=== PATIENT | male | born 2000 | race Hispanic/Latino ===

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

== ENCOUNTER 2023-01-08 13:05 | Emergency (ER) | payer MEDICAID, OTHER ==
[~2023-01-08] VITALS: Ht 172.7 cm; Wt 51.3 kg
[2023-01-08 13:12] VITALS: BP 115/77; PULSE 71; RESP 20
[2023-01-08 13:59] LABS: APPEARANCE,URINE CLOUDY (CLEAR); BILIRUBIN,URINE NEGATIVE (NEGATIVE); COLOR,URINE YELLOW (YELLOW); GLUCOSE, URINE (UA) NEGATIVE (NEGATIVE); KETONES,URINE NEGATIVE (NEGATIVE); LEUKOCYTE ESTERASE ,URINE 250 Leu/uL (NEGATIVE); NITRATE,URINE NEGATIVE (NEGATIVE); OCCULT BLOOD,URINE NEGATIVE (NEGATIVE); PH,URINE 5.5 (5.0-8.0); PROTEIN,URINE 30 mg/dL (NEGATIVE); UROBILINOGEN,URINE 0.2 mg/dL (0.2-1.0)
[2023-01-08] MEDS ORDERED: CEFTRIAXONE 1G VIAL IVPB ONE (14:00)
[2023-01-08] MEDS ORDERED: AZITHROMYCIN 250 MG TABLET PO ONE (14:00)
[2023-01-08 14:13] LABS: ADD UA MICROSCOPIC YES
[2023-01-08 14:17] LABS: MUCUS,URINE RARE LPF (None Seen); SQUAMOUS EPITHELIAL CELL,UR RARE /HPF (0-2); WBC,URINE TNTC /HPF (0-1)
[2023-01-08] MEDS ORDERED: DOXY100C5 PO (14:47)
== END 2023-01-08 15:00 | disposition home or self-care (01) ==
LOC: EDH 13:05
DX: N30.00 Acute cystitis without hematuria (principal); Z20.2 Contact with and (suspected) exposure to infections with a predominantly sexual mode of transmission; Z98.890 Other specified postprocedural states
CPT/HCPCS: 99284; 96365; 87088; 87797; 87486; 81001; J0696

== ENCOUNTER 2023-12-05 15:06 | Emergency (ER) | payer SELFPAY ==
[~2023-12-05] VITALS: Ht 175.3 cm; Wt 54.0 kg
[~2023-12-05 15:06] MED LIST: DOXY100C5 PO
[2023-12-05 15:53] VITALS: BP 126/75; PULSE 88; RESP 20; TEMP 97; O2SAT 98
[2023-12-05 16:33] LABS: APPEARANCE,URINE CLOUDY (CLEAR); BILIRUBIN,URINE NEGATIVE (NEGATIVE); COLOR,URINE YELLOW (YELLOW); GLUCOSE, URINE (UA) NEGATIVE (NEGATIVE); KETONES,URINE NEGATIVE (NEGATIVE); LEUKOCYTE ESTERASE ,URINE 500 Leu/uL (NEGATIVE); NITRATE,URINE NEGATIVE (NEGATIVE); OCCULT BLOOD,URINE SMALL (NEGATIVE); PH,URINE 6.5 (5.0-8.0); PROTEIN,URINE 10 mg/dL (NEGATIVE)
[2023-12-05 16:45] LABS: MUCUS,URINE RARE LPF (None Seen); SQUAMOUS EPITHELIAL CELL,UR RARE /HPF (0-2); UNCLASSIFIED CRYSTAL 8 /HPF (None Seen); WBC,URINE TNTC /HPF (0-1); YEAST,URINE BUDDING FEW /HPF (None Seen)
[2023-12-05] MEDS ORDERED: CEPH500B PO (16:53)
== END 2023-12-05 17:03 | disposition home or self-care (01) ==
LOC: EDH 15:06
DX: N30.00 Acute cystitis without hematuria (principal); Z20.2 Contact with and (suspected) exposure to infections with a predominantly sexual mode of transmission
CPT/HCPCS: 81001; 87086; 87491; 87591

== ENCOUNTER 2024-02-11 02:19 | Emergency (ER) | payer SELFPAY ==
[~2024-02-11] VITALS: Ht 160 cm; Wt 52.2 kg
[~2024-02-11 02:19] MED LIST changes: +CEPH500B PO
--- NOTE | 2024-02-11 02:48 | NUR ---
PATIENT CAME INTO ER DUE TO A FALL AND LACERATION TO THE BACK OF THE RIGHT HEAD. MOTHER AT SIDE. PATIENT BECAME VERY VIOLENT AND BELLIGERENT WITH MOTHER, DOCTOR AND NURSES, STATING THAT HE DID NOT NEED ANYONES HELP. PATIENT REFUSED HELP MULTIPLE TIMES DESPITE THE RE DIRECTION AND EDUCATION PROVIDED TO MOTHER AND PATIENT. PATIENT APPEARED TO BE INTOXICATED, WITH AN UNSTEADY GATE.
--- NOTE | 2024-02-11 02:51 | NUR ---
AT THIS TIME PATIENT HAS ELOPED WITH MOTHER, ED DOCTOR MADE AWARE
--- NOTE | 2024-02-11 02:52 | NUR ---
PATIENT DID NOT LET ANYONE ASSESS HIM OR CHECK HIS VITALS.
== END 2024-02-11 02:54 | disposition left against medical advice (07) ==
LOC: EDH 02:19
DX: S01.01XA Laceration without foreign body of scalp, initial encounter (principal); Z53.21 Procedure and treatment not carried out due to patient leaving prior to being seen by health care provider; W18.39XA Other fall on same level, initial encounter; Y93.89 Activity, other specified; Y92.89 Other specified places as the place of occurrence of the external cause; Y99.8 Other external cause status

== ENCOUNTER 2024-03-17 04:25 | Emergency (ER) | payer SELFPAY ==
[~2024-03-17] VITALS: Ht 172.7 cm; Wt 54.4 kg
--- NOTE | 2024-03-17 04:44 | NUR ---
WHEN ASSESSING PATIENT AND PREPARING TO DRAW BLOOD FOR MANDATORY BLOOD DRAW, PATIENT STATED HE IS FEELING SUICIDAL, VOICES A PLAN TO SHOOT HIMSELF WITH OFFICER MAYDA'S GUN. PATIENT ALSO REPORTS HEARING VOICES TELLING HIM TO HURT HIMSELF, DENIES HOMICIDAL IDEATION OR VISUAL HALLUCINATIONS. PATIENT STATES SI AND AUDITORY HALLUCINATIONS STARTED A COUPLE HOURS AGO AFTER BEING PLACED IN CUSTODY WITH DPS.
--- NOTE | 2024-03-17 04:57 | NUR ---
RT AC AREA CLEANED WITH SOAP AND WATER, PAT DRY. BLOOD DRAWN FOR DPS VIA WARRANT SIGNATURE. PT TEARFUL, VERBALLY ABUSIVE TO STAFF AND DPS NATHAN FREDERICK AT BEDSIDE. CALLING DPS NATHAN A " BITCH", " NIGGA" " I DONT GIVE MY CONSENT TO DO THIS" IT WAS EXPLAINED PRIOR, DURING AND AFTER BLOOD DRAW THAT A WARRANT WAS ISSUED AND NO VERBAL CONSENT WAS NEEDED. PT CONTINUED TO CALL DPS NATHAN FREDERICK NAMES, NATHAN WAS NOT PHYSICALLY INVOLVED IN DRAW, ( NURSING STAFF WAS ) NATHAN WAS NOT PHYSICALLY TOUCHING PT OR TALKING WITH PT. PT CONTINUED TO BE VERBALLY AGGRESSIVE ' I BET SHE DOESNT HAVE ANY TANZANIAN BLOOD IN HER'. PT STATED TO NATHAN MAYDA STANDING TO HIS LEFT " JUST FUCKING SHOOT ME " GESTURING TO HIS GUN. " I JUST WANT TO " PT MADE THIS PLEA, DEMAND MULTIPLE TIMES IN DIFFERENT PHRASING. PT CRYING STATING " THEY ALREADY DEPORTED MY MOM TO [place]".
--- NOTE | 2024-03-17 04:58 | NUR ---
INCREASED TO LEVEL 2 DUE TO SI
--- NOTE | 2024-03-17 05:22 | ERN ---
ED Note History of Present Illness Stated Complaint: BLOOD DRAW Chief Complaint: Mandatory Blood Draw Time Seen by MD: 05:21 Dictation: This is a 23-year-old male brought by to DPS agents with a warrant for a blood draw. As he was bedded and blood draw was being drawn, patient is started threatening that he wanted to shoot himself and he was suicidal. Given this a medical clearance is being done. Patient is belligerent, intoxicated and smells of alcohol breath. 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 Surgical History: None Family History: Negative Social History: ETOH RN Note Reviewed/Agreed w/PFSH: Yes Review of System Dictation Constitutional: Negative for fever,chills, and weight loss Eyes: Negative for injury, pain,redness, and discharge ENT: Negative for injury,pain or swelling Cardiovascular: Negative for chest pain, palpitations, and edema Respiratory: Negative for shortness of breath, cough, and wheezing, Abdomen/GI: Negative for abdominal pain, nausea, vomiting, diarrhea, and constipation Back: Negative for injury and pain : Negative for injury, bleeding and discharge MS/Extremity: Negative for injury and deformity Skin: Negative for rash, and discoloration Neuro: Negative for headache, weakness, numbness, tingling, and seizure Psych: Positive for suicide ideation, denied homicidal ideation, and hallucinations Initial Vital Sign VS Vital Signs Date Time Temp Pulse Resp B/P (MAP) Pulse Ox O2 Delivery O2 Flow Rate FiO2 03/17/24 04:26 97.9 74 20 110/74 100 Room Air 03/17/24 06:07 0 21 Physical Exam Dictation General: awake, alert, NAD very thin unkempt Head/Face: Normocephalic, atraumatic Eyes: PERRL, EOMI, vision at baseline ENT: oral cavity clear, TMs clear, no signs of infection Neck: Trachea midline, supple, no nuchal rigidity Cardiovascular: RRR, normal S1/S2, No MRGs, no JVD Respiratory: CTAB, no respiratory distress, No rales or wheezes Abdomen: Soft, non-tender, non-distended, normal bowel sounds, no guarding or rebound. Skin: Warm, dry, normal turgor, no rash MS/Extremity: Pulses equal, no cyanosis, neurovascular intact, FROM Neuro: COAx4, GCS 15, strength 5/5, CN 2-12 intact, normal cerebellar exam, normal gait, Psych: Normal behavior, mood, and affect normal Extremities-trace edema without any palpable cords, Homans sign is negative Results (Laboratory/Radiology) Laboratory/Radiology Laboratory Tests Test 03/17/24 05:00 White Blood Count 9.9 K/uL (4.8-10.8) Red Blood Count 5.37 MIL/uL (4.50-6.20) Hemoglobin 16.5 g/dL (14.0-18.0) Hematocrit 48.0 % (42-54) Mean Corpuscular Volume 89.4 fL (80-100) Mean Corpuscular Hemoglobin 30.7 pg (27.0-33.0) Mean Corpuscular Hemoglobin Concent 34.4 g/dL (32.0-36.0) Red Cell Distribution Width 14.6 % (11.0-15.5) Platelet Count 287 K/uL (130-400) Mean Platelet Volume 10.5 fL (7.5-10.5) Immature Granulocyte % (Auto) 1.6 % (0-1) H Neutrophils (%) (Auto) 65.5 % (40.0-77.0) Lymphocytes (%) (Auto) 25.5 % (21.0-51.0) Monocytes (%) (Auto) 5.8 % (3.0-13.0) Eosinophils (%) (Auto) 1.0 % (0.0-8.0) Basophils (%) (Auto) 0.6 % (0.0-5.0) Neutrophils # (Auto) 6.5 K/uL (1.8-7.7) Lymphocytes # (Auto) 2.5 K/uL (1.0-4.8) Monocytes # (Auto) 0.6 K/uL (0.1-1.0) Eosinophils # (Auto) 0.10 K/uL (0.00-0.70) Basophils # (Auto) 0.06 K/uL (0.00-0.20) Absolute Immature Granulocyte (auto 0.16 K/uL (0-1) Nucleated Red Blood Cells 0.0 % (0.0-0.19) Sodium Level 140 mmol/L (136-145) Potassium Level 3.5 mmol/L (3.5-5.1) Chloride Level 104 mmol/L (101-111) Carbon Dioxide Level 25 mmol/L (21-32) Blood Urea Nitrogen 9 mg/dL (7-18) Creatinine 0.9 mg/dL (0.5-1.3) Glomerular Filtration Rate Calc 125 mL/min (>90) Random Glucose 97 mg/dL (70-105) Total Calcium 8.4 mg/dL (8.5-10.1) L Salicylates Level < 2.8 mg/dL (2.8-20.0) L Acetaminophen Level < 1 mcg/mL (10-29) L Serum Alcohol 232 mg/dL (0-10) H Labs Reviewed?: Yes ED Course ED Course Orders Procedure Category Date Status Time Acetaminophen LAB 03/17/24 Complete 05:11 Alcohol, Blood LAB 03/17/24 Complete 05:11 Salicylate LAB 03/17/24 Complete 05:11 Cbc With Differential LAB 03/17/24 Complete 05:11 Basic Metabolic Panel LAB 03/17/24 Complete 05:11 Drug Screen Urine LAB 03/17/24 Logged 05:11 Urinalysis Profile LAB 03/17/24 Logged 05:11 Vital Signs Date Time Temp Pulse Resp B/P (MAP) Pulse Ox O2 Delivery O2 Flow Rate FiO2 03/17/24 07:16 97.9 80 18 116/73 100 Room Air* 0 21 03/17/24 06:07 87 18 101/62 98 Room Air* 0 21 03/17/24 04:26 97.9 74 20 110/74 100 Room Air We will perform diagnostic labs, Once the results are available, will review and personally interpreted the labs to rule out any acute life-threatening emergency the trach require immediate intervention and treatment. I will then re-evaluate the patient after treatment and diagnostic exams have return to determine whether the patient requires any further testing, can safely be discharged to law enforcement or need further admission to hospital for additional treatment and evaluation. Labs reviewed CBC within normal limits. BNP 7 showed a potassium of 3.5 BUN and creatinine are 9 and 0.9. Tox screen showed an alcohol level of 232. Urine drug screen is still pending Medical Decision Making MDM MDM: Differential diagnosis: Alcohol intoxication, recreational drug intoxication, psychosis Rationale: Tests considered and ordered secondary to shared decision making include: Previous outside records reviewed: Old ER visits. Risk of complication and/or morbidity or mortality of patient management: None Medications-Per medication reconciliation Need for hospitalization: Patient does not meet criteria for hospitalization. Need for emergency major/minor surgery: No There are no social concerns with this patient. Prescription drug management Prescriptions will include symptomatic care Patient's prior external medical records from other ER visits were reviewed by me as indicated. Prior testing and results from previous visits were reviewed. Prior tests were taken into account with medical decision making and resource utilization, independent historian/historians were used to obtain complete medical history. I independently interpreted the test that were performed, results were reviewed by me and considered findings on radiology if ordered. Medical management and examination interpretation discussions were had by me with other qualified healthcare professionals as indicated for the patient's care. PATIENT REFUSED TO GIVE URINE FOR DRUG SCREEN. PATIENT WILL BE CLEARED WHILE INCARCERATED. VITALS HAS BEEN STABLE HERE. Problem List Problem List: (1) Alcohol intoxication DX & DISP Disposition: Discharge Departure Impression: Primary Impression: Alcohol intoxication Condition: Stable Additional Instructions: Patient and the caregiver have been informed of all the diagnostic tests and the imaging conducted during the today's visit to the emergency room and has verbalized understanding of the results I have personally reviewed and interpreted all diagnostic exams performed here in the ER today as well as the vital signs documented by the nursing staff. The patient is now being discharged to law enforcement custody and should follow up with the primary care physician or the specialist as directed by the ER staff. Referrals: SELF,REFERRAL (PCP) MANDIE MARTINEZ MD Time of Disposition: 08:17 MARIBEL LEWIS MD Mar 17, 2024 05:22 KIRAN HAZEL MD Mar 17, 2024 08:17
[2024-03-17 05:27] LABS: BASOPHILS # (AUTO) 0.06 K/uL (0.00-0.20); BASOPHILS % (AUTO) 0.6 % (0.0-5.0); IMMATURE GRANULOCYTE ABSOLUTE 0.16 K/uL (0-1); LYMPHOCYTES # (AUTO) 2.5 K/uL (1.0-4.8); LYMPHOCYTES % (AUTO) 25.5 % (21.0-51.0); MEAN CORPUSCULAR HEMOGLOBIN 30.7 pg (27.0-33.0); MEAN CORPUSCULAR HGB CONC 34.4 g/dL (32.0-36.0); MEAN CORPUSCULAR VOLUME 89.4 fL (80-100); MONOCYTES # (AUTO) 0.6 K/uL (0.1-1.0); MONOCYTES % (AUTO) 5.8 % (3.0-13.0); NEUTROPHILS # (AUTO) 6.5 K/uL (1.8-7.7); NEUTROPHILS % (AUTO) 65.5 % (40.0-77.0); PLATELET COUNT (AUTO) 287 K/uL (130-400); RED BLOOD CELL COUNT(AUTO) 5.37 MIL/uL (4.50-6.20); RED CELL DISTRIBUTION WIDTH 14.6 % (11.0-15.5); WHITE BLOOD COUNT (AUTO) 9.9 K/uL (4.8-10.8)
[2024-03-17 05:35] LABS: CARBON DIOXIDE 25 mmol/L (21-32); CHLORIDE 104 mmol/L (101-111); CREATININE 0.9 mg/dL (0.5-1.3); GLOMERULAR FILTR. RATE CALC 125 mL/min (>90); GLUCOSE,RANDOM 97 mg/dL (70-105); POTASSIUM 3.5 mmol/L (3.5-5.1); SODIUM SERUM 140 mmol/L (136-145); UREA NITROGEN, BLOOD 9 mg/dL (7-18)
[2024-03-17 05:38] LABS: ALCOHOL, BLOOD 232 mg/dL (0-10)
[2024-03-17 05:39] LABS: ACETAMINOPHEN < 1 mcg/mL (10-29); SALICYLATE < 2.8 mg/dL (2.8-20.0)
--- NOTE | 2024-03-17 06:01 | NUR ---
PATIENT REFUSING URINE SAMPLE, GIVEN URINAL AND URINE CONTAINER BUT STATES HE WILL NOT GIVE US A SAMPLE. DPS AT BEDSIDE.
--- NOTE | 2024-03-17 06:26 | NUR ---
PATIENT SLEEPING, NO DISRESS NOTED, DPS OFFICERS X2 AT BEDSIDE.
[2024-03-17 07:16] VITALS: BP 116/73; PULSE 80; RESP 18; TEMP 97.9; O2SAT 100
--- NOTE | 2024-03-17 07:30 | NUR ---
NATHAN MCKAY AT THE BEDSIDE REQUESTING PT TO MEDICALLY CLEARED AND PT CAN GET PSYCH SCREEN IN PRISON. DR HAZEL ER PROVIDER MADE AWARE.
--- NOTE | 2024-03-17 08:32 | NUR ---
PT DISCHARGED TO [facility] #[id number]. PT ALERT AND ORIENTED, NAD, AMBULATING WITHOUT ASSISTANCE. NO IV IN PLACE.
== END 2024-03-17 08:35 ==
LOC: EDH 04:25 → EEVIPCON 04:25 → EDH 08:35
DX: F10.129 Alcohol abuse with intoxication, unspecified (principal); Z79.899 Other long term (current) drug therapy
CPT/HCPCS: 99283; 80048; 85025; 36415; G0481

== ENCOUNTER 2024-08-11 03:44 | Emergency (ER) | payer SELFPAY ==
[~2024-08-11] VITALS: Ht 172.7 cm; Wt 55.3 kg
[2024-08-11 03:47] VITALS: BP 110/71; PULSE 108; RESP 20; TEMP 97.3
== END 2024-08-11 05:11 | disposition left against medical advice (07) ==
LOC: EDH 03:44
DX: R04.2 Hemoptysis (principal); Z53.21 Procedure and treatment not carried out due to patient leaving prior to being seen by health care provider

== ENCOUNTER → 2024-10-22 | Emergency (ER) | payer SELFPAY ==
[~2024-10-22] VITALS: Ht 172.7 cm; Wt 49.5 kg
--- NOTE | 2024-10-22 09:14 | ERN ---
General Chief Complaint: Penis Problem Stated Complaint: DISCHARGE Time Seen by MD: 09:09 Source: patient History of Present Illness Initial Comments Patient is a 24-year-old male coming in complaining of possible STD. Per patient he was treated January for an STD but states he had intercourse with a partner was untreated yet. He states that he believes that he has chlamydia. Allergies: Coded Allergies: No Known Allergies (Unverified Allergy, Unknown, 09/20/18) Home Meds Active Scripts Cephalexin Monohydrate (Keflex) 500 Mg Cap, 1 CAP PO BID for 10 Days, #20 CAP 0 Refills Prov:KIRAN HAZEL MD 12/05/23 Doxycycline Hyclate (Doxycycline Hyclate) 100 Mg Capsule, 100 MG PO BID for 14 Days, #28 CAP Prov:MAYUR BARRERA NP 01/08/23 Past Medical History Past Medical History: Anxiety, Other Medical History Other: ATRIAL SEPTAL DEFECT Past Surgical History: None Family History Family History: Negative Social History Social History: ETOH ROS Dictation CONSTITUTIONAL: No chills, no fever, no weakness, no diaphoresis, no malaise. HEAD/FACE: No signs of trauma. EENT: No eye pain, no blurred vision, no tearing, no double vision, no ear pain, no ear discharge, no nose pain, no nasal congestion, no throat pain, no throat swelling, no mouth pain. RESPIRATORY: No cough, no orthopnea, no SOB, no stridor, no wheezing. CARDIOVASCULAR: No chest pain, no edema, no palpitations, no syncope. GASTROINTESTINAL/ABDOMINAL: No abdominal pain, no constipation, no diarrhea, no nausea, no vomiting. GENITOURINARY: No abnormal discharge, no dysuria, no frequent urination, no hematuria. No complaints of pain in the genitals. MUSCULOSKELETAL: No back pain, no gout, no joint pain, no joint swelling, no muscle pain, no muscle stiffness, no neck pain. INTEGUMENTARY: No change in color, no change in hair/nails, no dryness, no lesion, no lumps, no rash. NEUROLOGICAL/PSYCH: No anxiety, not depressed, no emotional problem, no headache, no numbness, no pre-existing deficit, no history of seizures, no tremors, no weakness. HEMATOLOGIC/LYMPHATIC: Not anemic, no history of blood clots, no apparent bleeding, no bruising, glands not swollen. All Systems Negative, Except as Noted. Physical Exam Physical Exam Dictation VITAL SIGNS: Reviewed. GENERAL APPEARANCE: Alert, oriented x3, no acute distress, obese. HEAD AND FACE: Non-traumatic. EYES: PERRL, pink conjunctivas, eyelid no trauma, anterior chamber clear. EARS: Pinnas intact and no signs of trauma or erythema. Ear canals clear and no discharge. TMs no erythema. NOSE: No discharge, no bleeding. OROPHARYNX: Mouth normal, teeth no caries, tongue pink. Pharynx clear, no erythema. Tonsils no exudates, no abscesses noted. Mucous membrane moist. NECK: Supple, non-tender, no thyromegaly, no masses, no JVD, no bruits. BREAST: Deferred. CHEST: No tenderness, no crepitus, no paradoxical movement, no retractions. LUNGS: Clear, well-ventilated, symmetric, no rales, no wheezing, no rhonchi, no stridor, good breath sounds bilaterally. HEART: Regular rate, regular rhythm, no murmur, no gallops. VASCULAR: No peripheral edema. ABDOMEN: Soft, positive bowel sounds, nondistended, no guarding, nontender, no rebound, no masses no hepatomegaly, no splenomegaly, no Everett's sign, no hernias. RECTAL: Deferred. GENITAL: Deferred. NEUROLOGICAL: Normal speech, gross motor function intact, gross sensory function intact. MUSCULOSKELETAL: Neck nontender, full range of motion, back nontender, full range of motion. EXTREMITIES: Nontender, full range of motion. SKIN: Color pink, dry, no turgor, no rash, no lacerations, no abrasions, no contusions. LYMPHATICS: Deferred. Results Laboratory and Microbiology Labs Reviewed?: Yes MDM MDM: Differential diagnosis: Dysuria, possible STD, Rationale: Tests considered and ordered secondary to shared decision making include: Previous outside records reviewed: Old ER visits. Risk of complication and/or morbidity or mortality of patient management: None Medications-Per medication reconciliation Need for hospitalization: Patient does not meet criteria for hospitalization. Need for emergency major/minor surgery: No Patient is a 24-year-old male coming in complaining of possible having an STD. Patient states he had intercourse with a his significant other. He believes he was not treated. I did not notify him we will test him and if the results are positive he will be notified. ED Course Orders Procedure Category Date Status Time Chlamydia & Gc Pcr SMITA 10/22/24 Verified 09:11 DX & DISP Disposition: Discharge Departure Impression: Primary Impression: STD exposure Condition: Stable Additional Instructions: FOLLOW-UP WITH PRIMARY CARE PROVIDER IN 1 TO 2 DAYS. TAKE MEDICATIONS DIRECTED HERE IN THE EMERGENCY ROOM. OKAY TO CONTINUE HOME MEDICATIONS UNLESS OTHERWISE DISCUSSED DURING YOUR VISIT IN THE EMERGENCY ROOM TODAY. RETURN TO YOUR NEAREST EMERGENCY ROOM IF SYMPTOMS WORSEN OR IF THERE IS NO IMPROVEMENT. CALL 911 IF YOU NEED IMMEDIATE ASSISTANCE. TAKE TYLENOL [id number] NEEDED AND IF NO CONTRAINDICATIONS ARE PRESENT. INCREASE ORAL HYDRATION. A WOUND CULTURE OR URINE CULTURE WAS ORDERED HERE IN THE EMERGENCY ROOM DEPARTMENT PLEASE FOLLOW-UP WITH PRIMARY CARE PROVIDER AND ADVISE THEM TO GET REPORTS FROM OUR FACILITY. IF YOU HAD ANY TONY WRAP/SPLINTS THAT WERE APPLIED HERE, PLEASE DO NOT REMOVE THEM UNTIL YOU SEE YOUR PRIMARY CARE OR SPECIALTY. Referrals: Referrals: SELF,REFERRAL (PCP) MANDIE MARTINEZ MD Time of Disposition: 09:13 KIRAN HAZEL MD Oct 22, 2024 09:14
[2024-10-22 09:15] VITALS: BP 109/59; PULSE 64; RESP 16; TEMP 97.1; O2SAT 100
== END ==
LOC: EDH 09:07
DX: Z20.2 Contact with and (suspected) exposure to infections with a predominantly sexual mode of transmission (principal); Z79.899 Other long term (current) drug therapy
CPT/HCPCS: 99282